=== PATIENT | female | born 1965 | race Caucasian/White ===

== ENCOUNTER 2017-10-25 08:31 | Observation (INO) | payer BC, SELFPAY ==
[2017-10-25] VITALS (11 sets, daily range): BP systolic 96–156; BP diastolic 57–95; PULSE 71–102; RESP 14–20; TEMP 36.4–37.2; O2SAT 93–99; BMI 37.0; BMI 36.8; BMI 36.9
--- NOTE | 2017-10-25 08:49 | CT_ITS ---
STUDY: CT ABDOMEN AND PELVIS WITH CONTRAST REASON FOR EXAM: Female, 52 years old. Right lower quadrant pain. Diarrhea. RADIATION DOSAGE (If Supplied By Facility): CTDIvol = ( 16.85 ) mGy, DLP = ( 1237.96 ) mGycm TECHNIQUE: Transaxial images were obtained from the dome of the diaphragm to the symphysis pubis without oral contrast. 100ML ml of Isovue 300 contrast was administered. Sagittal and coronal images were reconstructed. Individualized dose optimization techniques were used for this CT. COMPARISON: None. FINDINGS: Mild degree of increased markings at the lung bases suggestive of dependent bibasilar atelectasis. The visualized portions of the heart are within normal limits. There is decreased attenuation of the liver consistent with steatosis. There are surgical clips in the gallbladder fossa consistent with a prior cholecystectomy. Normal spleen. Normal pancreas. Normal bilateral adrenal glands. Normal right kidney. There is evidence of crossed ectopia of the left kidney where the left kidney is seen in the right lower quadrant and upper right side of the pelvis. There is a small hiatal hernia. Normal small intestine. Normal colon. There is a tubular, thick-walled appendix (>7mm), consistent with acute appendicitis. Normal abdominal aorta. Normal inferior vena cava. There is borderline retroperitoneal lymphadenopathy with enlarged nodes no greater than 10mm in the short axis diameter. Normal urinary bladder. The uterus is tilted to the right side of the pelvis. Normal abdominal wall. Normal osseous structures. CT/Abdomen/Pelvis WITH Contrast IMPRESSION: Findings in keeping with acute appendicitis with no evidence of periappendiceal abscess. 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 N.B. : The above information has been verbally conveyed by Jacbo Barragan MD to Jonny Zeng on 10/25/2017 11:31:38 (ET). Electronically Signed: Jacob Barragan MD at 11:31 EDT Tel [phone], Service support , N.B. : The above information has been verbally conveyed by Jacob Barragan MD to Jonny Zeng on 10/25/2017 11:31:38 (ET).
[2017-10-25] MEDS: Ondansetron 4 MG/2 ML Vial IV (09:33)
[2017-10-25] MEDS: 0.9% Normal Saline 1,000 ML 1000 ML IV (09:33)
[2017-10-25 09:36] LABS: Absolute Neutrophil Count 11.2 X10^3/uL (2.0-7.7); Basophil# 0.01 X10^3/uL; Basophil% 0.1 % (0-1); Eosinophil# 0.01 X10^3/uL; Eosinophils% 0.1 % (0-5); Hematocrit 43.8 % (37-47); Hemoglobin 14.6 g/dl (12.0-15.0); Lymphocyte % 6.4 % (19-41); Mean Corp Hgb Conc 33.3 g/gl (32-36); Mean Corpuscular Hgb 27.9 pg (27.0-32.0); Mean Corpuscular Volume 83.7 fL (81-99); Mean Platelet Vol. 9.6 fl (6.2-12.0); Monocyte# 0.36 X10^3/uL; Monocyte% 2.9 % (0-10); Neutrophil # 11.21 X10^3/uL (2.7-7.7); Neutrophil % 90.3 % (47-70); Platelet Count 261 K/mm3 (150-450); RBC Distribution Width CV 13.4 % (11.6-14.6); RBC Distribution Width SD 41.3 fl (35.1-43.9); Red Blood Count 5.23 M/mm3 (4.2-5.4); White Blood Count 12.4 K/mm3 (4.4-11.0)
[2017-10-25 09:40] LABS: POSITIVE COUNT NO; POSITIVE DIFFERENTIAL NO; POSITIVE MORPHOLOGY NO
[2017-10-25 09:52] LABS: AST(SGOT) 37 U/L (15-37); Alanine Aminotransfer ALT/SGPT 63 U/L (13-56); Albumin, Serum 4.1 g/dL (3.2-5.0); Alkaline Phosphatase 87 U/L (45-117); Anion Gap 10 (5-15); BUN 7 mg/dL (7-18); BUN/Creat Ratio 9.1 RATIO (10-20); Bilirubin, Direct 0.17 mg/dL (0.00-0.30); Calcium,Total 8.9 mg/dL (8.5-10.1); Chloride 97 mmol/L (98-107); Creatinine, Serum 0.77 mg/dL (0.55-1.02); EST Glomerular Filtration Rate 83 mL/min (>60); Est Glom Filt Rate - Afr Amer 100 mL/min (>60); Estimated Creatinine Clearance 69.09 ml/min; Globulin 4.4 g/dL (2.2-4.2); Glucose 144 mg/dL (74-106); Lipase 114 U/L (73-393); Potassium 3.4 mmol/L (3.5-5.1); Protein, Total 8.5 g/dL (6.4-8.2); Sodium Level 134 mmol/L (136-145)
[2017-10-25 11:42] LABS: Mucous, Urine 0 SEEN /hpf (<or=2+)
[2017-10-25 11:43] LABS: Color, Urine Yellow (Yellow); Glucose, Dipstick Normal (Normal); Ketone-Dipstick Negative (Negative); Leukocyte Esterase-Dipstick Negative /ul (Negative); Nitrite-Dipstick Negative (Negative); Occult Blood-Urine 150 /ul (Negative); Protein-Dipstick Negative (Negative); Urine Bilirubin Dipstick Negative (Negative); Urine Clarity Clear (Clear); Urine Urobilinogen Normal (Normal)
--- NOTE | 2017-10-25 11:43 | ED.VISSUMM ---
- ER Visit Summary Date of Service: 10/25/17 Chief Complaint: Abdominal pain History of Present Illness: The patient is a [address] Wright in [place]. She reports that she has right lower quadrant abdominal pain began at 7:00 last night. It is cramping pain that is 10 out of 10 severity. Is worsened by movement or food. She taken Tylenol without relief. She has had nausea with no vomiting. She has had 3 episodes of diarrhea. No blood in her stools or black tarry stools. No dysuria or frequency. She is on her menstrual period now. She does complain of subjective fever and chills. Physical Examination: Vitals: Stable. Afebrile. General: Well-nourished and well-developed. Head: Normocephalic atraumatic. Neck: Supple, no lymphadenopathy. No JVD. Nontender. Cardiovascular: Regular rate and rhythm. No murmurs. Respiratory: No respiratory distress. Clear to auscultation bilaterally. Abdominal: Soft, mild diffuse tenderness to palpation with moderate pain in the right lower quadrant, nondistended, normal bowel sounds. No guarding, rebound, or peritoneal signs. Back: Nontender. Extremities: Nontender, no edema. Skin: Normal color, no rash. Neurologic: Alert and oriented ?3. Cranial nerves II through XII are intact. Normal strength and sensation. Psych: Normal affect. Test Results: CBC is more for white count 12.4 with 90 segmented neutrophils and 6 lymphocytes. Chem-7 is more for sodium 134, potassium 3.4, glucose 144. LFTs marked for total protein 8.5 and globulin 4.4, ALT is 63. Lipase is normal. Clinical Impression(s) from Imaging Studies Abdomen/Pelvis CT 10/25/17 08:49 IMPRESSION: Findings in keeping with acute appendicitis with no evidence of periappendiceal abscess. 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 Emergency Department Course and Treatment: Patient had an IV placed. She was given morphine and Zofran IV. She is resting comfortably. After return to CT she was given a dose of Zosyn IV. Treatment Plan: The patient was discussed with Dr. Anaya. She will be taken to the operating room and admitted. Disposition: Admitted in stable condition. Impression: 1. Appendicitis. This note was generated with Visibiz dictation software. It may contain incorrect words, spelling, and punctuation that were not noted in review of the chart prior to signing ED Disposition - Plan for ED Patient: Chief Complaint: Abd Pain Referrals: Charis Figueroa [Primary Care Provider] -
--- NOTE | 2017-10-25 11:46 | ED.DCSUM_ITS ---
- ER Visit Summary Date of Service: 10/25/17 Chief Complaint: Abdominal pain History of Present Illness: The patient is a [address] Wright in [place]. She reports that she has right lower quadrant abdominal pain began at 7 :00 last night. It is cramping pain that is 10 out of 10 severity. Is worsened by movement or food. She taken Tylenol without relief. She has had nausea with no vomiting. She has had 3 episodes of diarrhea. No blood in her stools or black tarry stools. No dysuria or frequency. She is on her menstrual period now. She does complain of subjective fever and chills. Physical Examination: Vitals: Stable. Afebrile. General: Well-nourished and well-developed. Head: Normocephalic atraumatic. Neck: Supple, no lymphadenopathy. No JVD. Nontender. Cardiovascular: Regular rate and rhythm. No murmurs. Respiratory: No respiratory distress. Clear to auscultation bilaterally. Abdominal: Soft, mild diffuse tenderness to palpation with moderate pain in the right lower quadrant, nondistended, normal bowel sounds. No guarding, rebound, or peritoneal signs. Back: Nontender. Extremities: Nontender, no edema. Skin: Normal color, no rash. Neurologic: Alert and oriented ?3. Cranial nerves II through XII are intact. Normal strength and sensation. Psych: Normal affect. Test Results: CBC is more for white count 12.4 with 90 segmented neutrophils and 6 lymphocytes. Chem-7 is more for sodium 134, potassium 3.4, glucose 144. LFTs marked for total protein 8.5 and globulin 4.4, ALT is 63. Lipase is normal. Clinical Impression(s) from Imaging Studies Abdomen/Pelvis CT 10/25/17 08:49 IMPRESSION: Findings in keeping with acute appendicitis with no evidence of periappendiceal abscess. 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 Emergency Department Course and Treatment: Patient had an IV placed. She was given morphine and Zofran IV. She is resting comfortably. After return to CT she was given a dose of Zosyn IV. Treatment Plan: The patient was discussed with Dr. Anaya. She will be taken to the operating room and admitted. Disposition: Admitted in stable condition. Impression: 1. Appendicitis. This note was generated with D[employer]Me dictation software. It may contain incorrect words, spelling, and punctuation that were not noted in review of the chart prior to signing ED Disposition - Plan for ED Patient: Chief Complaint: Abd Pain Referrals: Charis Figueroa [Primary Care Provider] -
[2017-10-25 11:50] LABS: Red Blood Cells-Urine 10-25 SEEN /hpf (0-5); Squamous Epithelial Cells - UA 0-5 SEEN /hpf (5-10); White Blood Cells 0-5 SEEN /hpf (0-5)
[2017-10-25 11:51] LABS: Bacteria RARE /hpf (None Seen)
--- NOTE | 2017-10-25 12:41 | NURSING ---
or then [address] franklyn guillory
--- NOTE | 2017-10-25 13:24 | PCM.HP.STD ---
Problem List (1) Acute appendicitis Status: Acute Qualifiers: Acute appendicitis type: unspecified acute appendicitis type Qualified Code(s): K35.80 - Unspecified acute appendicitis History of Present Illness Date of Admission: 10/25/17 Chief Complaint: Right lower quadrant pain The patient is a 52 year old F who reports she began to have right lower quadrant pain around 7 PM last night. She did have diarrhea as well. She has nausea but no vomiting. She has pain in the right lower quadrant that does not radiate. She has no other symptoms at this time. Past Medical History Allergies aspirin Allergy (Verified 10/25/17 08:32) Unknown Surgical History: cholecystectomy Smoking Status: Never smoker Alcohol: None Drugs: None - *Family History Paternal History Items: Diabetes, Heart Disease Review of Systems Constitutional: Denies: Anorexia, Fever HEENT: Denies: Difficulty Hearing, Difficulty Swallowing Cardiovascular: Denies: Chest Pain Respiratory: Denies: Cough, Shortness of Breath Gastrointestinal: Reports: Abdominal Pain, Nausea. Denies: Vomiting Genitourinary: Denies: Dysuria Musculoskeletal: Denies: Joint Tenderness Skin: Denies: Dryness, Jaundice Neurological: Denies: Difficulty swallowing Psychiatric: Denies: Anxiety, Depression Hematologic/ Lymphatic: Denies: Adenopathy, Anemia VTE Information - Inpt Only VTE Present on Admission: No VTE Mechan Device Prophylaxis: SCD's VTE Pharm Prophylaxis ordered?: Yes Patient Problems: Active and Suspected Problems Acute appendicitis (Acute) - Physical Exam General: Alert, Oriented x3, Cooperative, No apparent distress HEENT: Atraumatic, PERRLA, EOMI Oral: Moist Mucosa Neck: Supple, No JVD Lungs: Normal air movement Cardiovascular: Regular rate, Regular Rhythm Abdomen: Soft, Non-Distended, Tender - Tender in the right lower quadrant with no guarding or rebound Extremities: No clubbing, No cyanosis Skin: No rashes Musculoskeletal: No Tenderness to Palpation of Joints or Extremities, No Muscle Wasting Neurological: Cranial nerves II-XII grossly intact, Deep Tendon Reflexes 2+/4 and Symmetrical Psych/Mental Status: Normal Affect, Appropriate Vital Signs Temp Pulse Resp BP Pulse Ox 98.4 F 80 14 140/78 H 99 10/25/17 08:32 10/25/17 12:08 10/25/17 12:08 10/25/17 12:08 10/25/17 12:08 Oxygen Delivery Method Room Air Weight: 208 lb 12.444 oz Body Mass Index (BMI) 37.0 Laboratory Tests Past 24 Hrs 10/25/17 10/25/17 10/25/17 09:26 09:26 11:35 WBC 12.4 H RBC 5.23 Hgb 14.6 Hct 43.8 MCV 83.7 MCH 27.9 MCHC 33.3 RDW 13.4 RDW Differential 41.3 Plt Count 261 MPV 9.6 Immature Gran % (Auto) 0.200 Neut % (Auto) 90.3 H Lymph % (Auto) 6.4 L Meagher % (Auto) 2.9 Eos % (Auto) 0.1 Baso % (Auto) 0.1 Absolute Neuts (auto) 11.2 H Absolute Lymphs (auto) 0.80 L Total Counted Not Reportable Sodium 134 L Potassium 3.4 L Chloride 97 L Carbon Dioxide 27.0 Anion Gap 10 BUN 7 Creatinine 0.77 Estim Creat Clear Calc 69.09 Est GFR (MDRD) Af Amer 100 Est GFR (MDRD) Non-Af 83 BUN/Creatinine Ratio 9.1 L Glucose 144 H Calcium 8.9 Total Bilirubin 0.80 Direct Bilirubin 0.17 AST 37 ALT 63 H Alkaline Phosphatase 87 Total Protein 8.5 H Albumin 4.1 Globulin 4.4 H Lipase 114 Urine Color Yellow Urine Clarity Clear Urine pH 7.0 Ur Specific [place] 1.010 Urine Protein Negative Urine Glucose (UA) Normal Urine Ketones Negative Urine Occult Blood 150 H Urine Nitrite Negative Urine Bilirubin Negative Urine Urobilinogen Normal Ur Leukocyte Esterase Negative Urine RBC 10-25 SEEN Urine WBC 0-5 SEEN Ur Squamous Epith Cells 0-5 SEEN Urine Bacteria RARE Urine Mucus 0 SEEN Clinical Impression(s) from Imaging Studies Abdomen/Pelvis CT 10/25/17 08:49 IMPRESSION: Findings in keeping with acute appendicitis with no evidence of periappendiceal abscess. 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 N.B. : The above information has been verbally conveyed by Jacob Barragan MD to Jonny Zeng on 10/25/2017 11:31:38 (ET). Electronically Signed: Jacob Barragan MD at 11:31 EDT Tel [phone], Service support , N.B. : The above information has been verbally conveyed by Jacob Barragan MD to Jonny Zeng on 10/25/2017 11:31:38 (ET). Assessment/Plan Active and Suspected Problems Acute appendicitis (Acute) 52-year-old female with acute appendicitis 1. Patient has appendicitis on CT and her presentation fits with appendicitis. She will be given a dose of antibiotics in the emergency room and taken this afternoon for laparoscopic appendectomy 2. I discussed surgery with her in detail. I discussed the risks including but not limited to bleeding, infection, injury to other organs such as the bowels or bladder. In her case there is also a risk of injuring the kidney as it is in an abnormal position. The patient understands all the risks and is willing to proceed with surgery. Nitin Anaya MD Pager: [facility] [address], [place] [phone] Office:
--- NOTE | 2017-10-25 13:27 | HP.PCM_ITS ---
Problem List (1) Acute appendicitis Status: Acute Qualifiers: Acute appendicitis type: unspecified acute appendicitis type Qualified Code (s): K35.80 - Unspecified acute appendicitis History of Present Illness Date of Admission: 10/25/17 Chief Complaint: Right lower quadrant pain The patient is a 52 year old F who reports she began to have right lower quadrant pain around 7 PM last night. She did have diarrhea as well. She has nausea but no vomiting. She has pain in the right lower quadrant that does not radiate. She has no other symptoms at this time. Past Medical History Allergies aspirin Allergy (Verified 10/25/17 08:32) Unknown Surgical History: cholecystectomy Smoking Status: Never smoker Alcohol: None Drugs: None - *Family History Paternal History Items: Diabetes, Heart Disease Review of Systems Constitutional: Denies: Anorexia, Fever HEENT: Denies: Difficulty Hearing, Difficulty Swallowing Cardiovascular: Denies: Chest Pain Respiratory: Denies: Cough, Shortness of Breath Gastrointestinal: Reports: Abdominal Pain, Nausea. Denies: Vomiting Genitourinary: Denies: Dysuria Musculoskeletal: Denies: Joint Tenderness Skin: Denies: Dryness, Jaundice Neurological: Denies: Difficulty swallowing Psychiatric: Denies: Anxiety, Depression Hematologic/ Lymphatic: Denies: Adenopathy, Anemia VTE Information - Inpt Only VTE Present on Admission: No VTE Mechan Device Prophylaxis: SCD's VTE Pharm Prophylaxis ordered?: Yes Patient Problems: Active and Suspected Problems Acute appendicitis (Acute) - Physical Exam General: Alert, Oriented x3, Cooperative, No apparent distress HEENT: Atraumatic, PERRLA, EOMI Oral: Moist Mucosa Neck: Supple, No JVD Lungs: Normal air movement Cardiovascular: Regular rate, Regular Rhythm Abdomen: Soft, Non-Distended, Tender - Tender in the right lower quadrant with no guarding or rebound Extremities: No clubbing, No cyanosis Skin: No rashes Musculoskeletal: No Tenderness to Palpation of Joints or Extremities, No Muscle Wasting Neurological: Cranial nerves II-XII grossly intact, Deep Tendon Reflexes 2+/4 and Symmetrical Psych/Mental Status: Normal Affect, Appropriate Vital Signs Temp Pulse Resp BP Pulse Ox 98.4 F 80 14 140/78 H 99 10/25/17 08:32 10/25/17 12:08 10/25/17 12:08 10/25/17 12:08 10/25/17 12:08 Oxygen Delivery Method Room Air Weight: 208 lb 12.444 oz Body Mass Index (BMI) 37.0 Laboratory Tests Past 24 Hrs 10/25/17 10/25/17 10/25/17 09:26 09:26 11:35 WBC 12.4 H RBC 5.23 Hgb 14.6 Hct 43.8 MCV 83.7 MCH 27.9 MCHC 33.3 RDW 13.4 RDW Differential 41.3 Plt Count 261 MPV 9.6 Immature Gran % (Auto) 0.200 Neut % (Auto) 90.3 H Lymph % (Auto) 6.4 L [place] % (Auto) 2.9 Eos % (Auto) 0.1 Baso % (Auto) 0.1 Absolute Neuts (auto) 11.2 H Absolute Lymphs (auto) 0.80 L Total Counted Not Reportable Sodium 134 L Potassium 3.4 L Chloride 97 L Carbon Dioxide 27.0 Anion Gap 10 BUN 7 Creatinine 0.77 Estim Creat Clear Calc 69.09 Est GFR (MDRD) Af Amer 100 Est GFR (MDRD) Non-Af 83 BUN/Creatinine Ratio 9.1 L Glucose 144 H Calcium 8.9 Total Bilirubin 0.80 Direct Bilirubin 0.17 AST 37 ALT 63 H Alkaline Phosphatase 87 Total Protein 8.5 H Albumin 4.1 Globulin 4.4 H Lipase 114 Urine Color Yellow Urine Clarity Clear Urine pH 7.0 Ur Specific [place] 1.010 Urine Protein Negative Urine Glucose (UA) Normal Urine Ketones Negative Urine Occult Blood 150 H Urine Nitrite Negative Urine Bilirubin Negative Urine Urobilinogen Normal Ur Leukocyte Esterase Negative Urine RBC 10-25 SEEN Urine WBC 0-5 SEEN Ur Squamous Epith Cells 0-5 SEEN Urine Bacteria RARE Urine Mucus 0 SEEN Clinical Impression(s) from Imaging Studies Abdomen/Pelvis CT 10/25/17 08:49 IMPRESSION: Findings in keeping with acute appendicitis with no evidence of periappendiceal abscess. 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 N.B. : The above information has been verbally conveyed by Jacob Barragan MD to Jonny Zeng on 10/25/2017 11:31:38 (ET). Electronically Signed: Jacob Barragan MD at 11:31 EDT Tel [phone], Service support , N.B. : The above information has been verbally conveyed by Jacob Barragan MD to Jonny Zeng on 10/25/2017 11:31:38 (ET). Assessment/Plan Active and Suspected Problems Acute appendicitis (Acute) 52-year-old female with acute appendicitis 1. Patient has appendicitis on CT and her presentation fits with appendicitis. She will be given a dose of antibiotics in the emergency room and taken this afternoon for laparoscopic appendectomy 2. I discussed surgery with her in detail. I discussed the risks including but not limited to bleeding, infection, injury to other organs such as the bowels or bladder. In her case there is also a risk of injuring the kidney as it is in an abnormal position. The patient understands all the risks and is willing to proceed with surgery. Nitin Anaya MD Pager: [facility] [address], [place] [phone] Office:
[2017-10-25] MEDS: Bupivacaine 0.25% 30 ML Vial (16:49)
--- NOTE | 2017-10-25 17:10 | OP.PCM_ITS ---
Problem List (1) Acute appendicitis Status: Acute Qualifiers: Acute appendicitis type: unspecified acute appendicitis type Qualified Code (s): K35.80 - Unspecified acute appendicitis Report of Operation Date of Procedure: 10/25/17 Pre-Operative Diagnosis: Acute appendicitis Post-Operative Diagnosis: Acute appendicitis Surgery/Procedure Performed:: Laparoscopic appendectomy Description of Surgical Findings:: Inflamed tense appendix Specimen's removed: Appendix Description of Procedure: The patient was brought into the operating room and general anesthesia was induced. The left arm was tucked and the abdomen was prepped and draped in usual sterile fashion. A small midline incision was made superior to the umbilicus and deepened to the level of the fascia. The fascia was elevated and incised. The peritoneum was also elevated and incised. A finger sweep was performed and a balloon trocar was placed into the abdomen and inflated. The abdomen was insufflated to 15 mmHg and the camera was inserted and the abdomen was inspected for any injuries upon entering the abdomen. There were none. The patient was placed in Trendelenburg position and a 5 mm ports placed in the left lower quadrant and suprapubic areas under direct visualization. Next using atraumatic bowel graspers the appendix was identified. The appendix was grasped and elevated and Enseal was used to take down the mesoappendix. A stapler was used to come across the base of the appendix. The appendix was then placed in Endo Catch bag and removed through the umbilical incision. The staple line was inspected and found to be hemostatic and intact. The 2 5 mm ports are removed under direct visualization. The balloon trocar was deflated and removed and all the air was removed from the abdomen. The umbilical incision fascia was closed with an 0 Vicryl [id number] suture. The incisions were then irrigated with saline and dried. Local anesthetic was injected into the incision sites. The skin incisions were then closed with interrupted 4-0 Monocryl suture and Steri-Strips. Bandages were applied and the patient was awoken and taken to PACU in stable condition. Patient tolerated the procedure well.
[2017-10-25 17:41] LABS: Bedside Glucose 142 mg/dL (70-110)
--- NOTE | 2017-10-25 18:35 | APP_PTH ---
PATIENT: HUEY REVELES LOC: MS2 U#:[id number] AGE/SX: 52/F [place] [facility] [place]: Dr. Nitin Anaya MD : 1965 BED: 1 DIS: 10/26/2017 SPEC #: [id number] RECD: 10/26/17 08:32 STATUS: KWASI JOHNSON #: [id number] SAVAGE: 10/25/17 18:[address]: Nitin Anaya DEPT: SURGICAL PATHOLOGY RECD BY: Breanne Nunez ENTERED: 10/26/17 10:56 SP TYPE: APPENDIX OTHR DR: Dr. Charis Figueroa MD Tissues: Appendix, NOS Procedures: Surgery Specimen Level III HEADER OPERATION: Laparoscopic, appendectomy PRE-OP DIAGNOSIS: Acute appendicitis TISSUE SUBMITTED: Appendix MICROSCOPIC DIAGNOSIS Appendix, appendectomy: Acute necrotizing appendicitis. Acute serositis. AM:guy 3/16/18 MICROSCOPIC DESCRIPTION Slides are reviewed. GROSS DESCRIPTION Received is one container labeled with the patient's name and designated appendix. The specimen consists of a C-shaped appendix measuring 10.5 cm in length and 0.7 cm in average diameter. The attached periappendiceal adipose tissue measures 2.5 cm in width. The serosa is congested. No obvious perforation is identified. The lumen is filled with dirty brown fecal material. No fecalith is identified. Rewinder Operator sections are submitted in one cassette. / SJ:guy 10/26/17 TC:2 CPT: 83803
[2017-10-25] MEDS: Dextrose 5%-Lactated Ringers 1,000 ML 75 ML IV (21:14)
[2017-10-25] MEDS: Piperacil/Tazobactam 3.375 GM/50 ML ML IV (21:14)
[2017-10-25] MEDS: Acetaminophen 325 MG Tablet 650 MG PO (22:45)
[2017-10-26 04:55] VITALS: BP 98/54; PULSE 87; RESP 16; TEMP 36.9; O2SAT 93
[2017-10-26] MEDS: Piperacil/Tazobactam 3.375 GM/50 ML ML IV (04:58)
--- NOTE | 2017-10-26 07:33 | PCM.DC.APPY ---
Discharge Diet: Light diet - advance as tolerated Discharge Activity: May Not Drive - for 3-5 days or while taking narcotic pain meds., May Shower Lifting Restrictions: 20 lbs for 2 weeks Call your doctor if your incision/area has: Continuous Slow Oozing, Sudden Increased Bleeding, Increased Pain/ Swelling, Increased Redness, Foul Smelling Discharge Call your doctor if you observe: Fever of 101 or Higher Suture Line Care: Avoid Pulling/Pushing, Avoid Pinching/Bending Additional Dressing/Incision Instructions:: Keep dressing clean and dry. Change or remove dressing in 1 day. Leave steri strips for 1 week. May protect with a gauze bandaid. Medications to take at Discharge Amoxicillin [Amoxil] 500 mg PO Q8 10/25/17 Lisinopril/Hydrochlorothiazide [Zestoretic 10/12.5 Tablet] 1 tablet PO DAILY 10/25/17 Allergies/Adverse Reactions: Allergies aspirin Allergy (Verified 10/25/17 08:32) Unknown Primary Care Physician: Charis Figueroa [Primary Care Provider] - Please Follow Up With: Nitin Anaya MD When: call for 2 week follow up appt [phone]
[2017-10-26 07:34] VITALS: BP 143/71; PULSE 90; RESP 18; TEMP 37.2; O2SAT 99
--- NOTE | 2017-10-26 07:35 | PCM.DC.SUM ---
Discharge Date and Diagnosis - Problem List Patient Problems: Active and Suspected Problems Acute appendicitis (Acute) Date of Admission: 10/25/17 Date of Discharge: 10/26/17 - Primary Discharge Diagnosis Active and Suspected Problems Acute appendicitis (Acute) Hospital Course and Treatment Imaging Results: Clinical Impression(s) from Imaging Studies Abdomen/Pelvis CT 10/25/17 08:49 IMPRESSION: Findings in keeping with acute appendicitis with no evidence of periappendiceal abscess. 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 N.B. : The above information has been verbally conveyed by Jacob Barragan MD to Jonny Zeng on 10/25/2017 11:31:38 (ET). Electronically Signed: Jacob Barragan MD at 11:31 EDT Tel [phone], Service support , N.B. : The above information has been verbally conveyed by Jacob Barragan MD to Jonny Zeng on 10/25/2017 11:31:38 (ET). Operations: appendectomy Procedures: None Summary of Care Provided: The patient is a 52 year old F who presented to the emergency room with right lower quadrant pain. CT revealed acute appendicitis. She was taken for laparoscopic appendectomy and after surgery she was admitted to the floor postoperatively. She tolerated clear liquid diet and was passing flatus in the morning. She is advanced to regular diet and was tolerating that she was discharged home in stable condition. Discharge Diet: Light diet - advance as tolerated Discharge Activity: May Not Drive - for 3-5 days or while taking narcotic pain meds., May Shower Call your doctor if your incision/area has: Continuous Slow Oozing, Sudden Increased Bleeding, Increased Pain/ Swelling, Increased Redness, Foul Smelling Discharge Call your doctor if you observe: Fever of 101 or Higher Suture Line Care: Avoid Pulling/Pushing, Avoid Pinching/Bending Additional Dressing/Incision Instructions:: Keep dressing clean and dry. Change or remove dressing in 1 day. Leave steri strips for 1 week. May protect with a gauze bandaid. Home Medications: Medications to take at Discharge Amoxicillin [Amoxil] 500 mg PO Q8 10/25/17 Lisinopril/Hydrochlorothiazide [Zestoretic 10/12.5 Tablet] 1 tablet PO DAILY 10/25/17 Acetaminophen [Tylenol Tablet] 650 mg PO Q6H PRN PRN tablet 10/26/17 Primary Care Physician: Charis Figueroa [Primary Care Provider] - Please Follow Up With: Nitin Anaya MD When: call for 2 week follow up appt [phone] Meaningful Use Info Meaningful Use Diagnoses (Choose all that apply): None applicable
[2017-10-26 07:50] VITALS: BP 91/54; PULSE 85; RESP 18; TEMP 37.1; O2SAT 92
[2017-10-26 13:50] VITALS: BP 143/71; PULSE 90; RESP 18; TEMP 37.2; O2SAT 99
== END 2017-10-26 14:02 | disposition home or self-care (01) ==
LOC: ED 12:13 → SDC 12:49 → AC 12:51 → MS2 13:06 → SDC 17:24
PROVIDERS: Admitting Provider Surgery; Emergency Provider Emergency Medicine; Family Provider Family Medicine; PCP Family Medicine; Visit Provider Surgery
PROC: 0DTJ4ZZ Resection of Appendix, Percutaneous Endoscopic Approach (ICD-10-PCS; CPT 44970; principal; 2017-10-25 18:15)
DX: K35.80 Unspecified acute appendicitis (principal); I10 Essential (primary) hypertension; Z79.899 Other long term (current) drug therapy
CPT/HCPCS: 00840; 44970; 74177; 80048; 80076; 81001; 82962; 83690; 85025; 88304; 96361; 96365; 96366; 96375; 96376; 97802; 99218; 99285; J7030; J7050; J7120; Q9967; A4216; G0378; J2405

== ENCOUNTER → 2019-03-25 | Outpatient (CLI) | payer BC, SELFPAY ==
--- NOTE | 2019-03-25 09:00 | BI_ITS ---
MAMMOGRAPHY - BILATERAL DIAGNOSTIC REASON FOR EXAM: Female, 54 years old. Abnormal screening mammogram. PERTINENT HISTORY: Sister with breast cancer. TECHNIQUE: Compression spot views in the MLO and craniocaudad projections of both breasts were obtained. CAD: Full Field Digital Mammography with Computer Added Detection was performed. COMPARISON: Comparison is made with prior examination dated February 04, 2019. FINDINGS: Breast Composition: The breasts are heterogeneously dense, which may obscure small masses. There is a 8mm by 7.2 mm nodular density in the medial inferior retroareolar region of the left a small faint nodular densities also seen in the retroareolar region of the right breast. Breast. Correlation with ultrasound is recommended. No other significant abnormalities are identified. BI/DIAG MAMM W/CAD, BILAT IMPRESSION: Subcentimeter nodular densities in both breasts as described. Correlation with ultrasound is recommended. ASSESSMENT CATEGORY: BIRADS Category 0: Incomplete. Need additional imaging evaluation. A letter regarding these results will be sent to the patient by the facility within 30 days. Approximately 10% of breast cancers are not detected by mammography. A normal mammogram should not delay biopsy of a clinically suspicious abnormality. Electronically Signed: Jacob Barragan, at 12:51 EDT , Service support ,
--- NOTE | 2019-03-25 09:42 | US_ITS ---
STUDY: ULTRASOUND BREAST - RIGHT REASON FOR EXAM: Female, 54 years old. Abnormal screening mammogram. TECHNIQUE: Axial and longitudinal images of the RIGHT breast were performed with a high resolution ultrasound transducer. COMPARISON: Comparison is made with prior mammogram done earlier today. FINDINGS: RIGHT Breast: There is a 4 mm x 3 mm x 3 mm cyst at the 12:00 position of the breast at 1 cm from nipple. It is also evidence of a 9 mm x 9 mm x 4 mm well-defined hypoechoic solid nodule at the 12:00 position of the breast at 3 sinus from the nipple. This most likely represents a small fibroadenoma. Tissue diagnosis is recommended. IMPRESSION: 9 mm x 9 mm x 4 mm well-defined hypoechoic solid nodule at the 12:00 position of the breast at 3 cm from nipple. This most likely represents a fibroadenoma. Tissue diagnosis recommended. ASSESSMENT CATEGORY: BIRADS Category 4: Suspicious - Biopsy Should Be Considered. A letter regarding these results will be sent to the patient by the facility within 30 days. Electronically Signed: Jacob Laurel, at 12:55 EDT , Service support , STUDY: ULTRASOUND BREAST - LEFT REASON FOR EXAM: Female, 54 years old. Abnormal screening mammogram. TECHNIQUE: Axial and longitudinal images of the LEFT breast were performed with a high resolution ultrasound transducer. COMPARISON: Comparison is made with prior mammogram done earlier today. FINDINGS: LEFT Breast: There is a 5 mm x 7 mm x 5 mm cyst at the 9:00 position of the breast at 3 cm from the nipple. US/Breast Limited Unilateral IMPRESSION: 5 mm x 7 mm x 5 mm cyst at the 9:00 position of the breast at 3 sinus from the nipple. ASSESSMENT CATEGORY: BIRADS Category 2: Benign. A letter regarding these results will be sent to the patient by the facility within 30 days. Electronically Signed: Jacob Barragan, at 12:54 EDT , Service support ,
== END | disposition home or self-care (01) ==
PROVIDERS: Family Provider Family Medicine; PCP Family Medicine
DX: R92.8 Other abnormal and inconclusive findings on diagnostic imaging of breast (principal)
CPT/HCPCS: 76642; 77066

== ENCOUNTER → 2019-04-04 | Outpatient (CLI) | payer BC, SELFPAY ==
--- NOTE | 2019-04-04 | IMM_PTH ---
PATIENT: HUEY REVELES LOC: [facility] U#:[id number] AGE/SX: 54/F ROOM: RE04/04/[address]: Dr. Cam Mclaughlin MD : 1965 BED: DIS: 04/04/2019 SPEC #: [id number] RECD: 04/05/19 11:29 STATUS: KWASI REQ #: [id number] SAVAGE: 04/04/19 00:[address]: Cam Mclaughlin DEPT: IMMUNOHISTOCHEMISTRY RECD BY: mAanda Cardenas ENTERED: 04/05/19 11:29 SP TYPE: IMMUNO OTHR DR: Dr. Charis Figueroa MD [facility] Doctor Tissues: Right breast, NOS Procedures: Calponin-1(initial) P40 (add) PHYSICIAN & INSTITUTION [place] [id number] SPECIMEN INFORMATION: Tissue Source: Right breast at 12 o'clock +3 Clinical Info: Abnormal right mammogram Specimen Number: [id number] CPT code: 99470, 51422 METHODOLOGY: Deparaffinized sections of prefer/formalin-fixed tissue or PAP/DQ stained slides are incubated with monoclonal/polyclonal antibodies/oligonucleotide probes. Localization is made via biotin free immunoperoxidase method. Appropriate controls are performed and reacted as expected. Results on target cell population are indicated in the following table: RESULTS: ANTIBODY / CLONE RESULT P40 (BC28) positive Calponin-1 (KZ221D) positive These tests were developed and their performance characteristics determined by [facility]. They may not have been cleared or approved by the U.S. Food and Drug Administration. The FDA has determined that such clearance or approval is not necessary. INTERPRETATION: Right breast at 12 o'clock +3, ultrasound-guided needle core biopsy: Consistent with adenosis. Negative for malignancy. SJ:guy 04/05/19
--- NOTE | 2019-04-04 08:30 | BRBX_PTH ---
PATIENT: HUEY REVELES LOC: [facility] U#:[id number] AGE/SX: 54/F ROOM: RE04/04/[address]: Dr. Cam Mclaughlin MD : 1965 BED: DIS: 04/04/2019 SPEC #: [id number] RECD: 04/04/19 11:09 STATUS: KWASI REYann #: [id number] SAVAGE: 04/04/19 08:[address]: Cam Mclaughlin DEPT: SURGICAL PATHOLOGY RECD BY: Amanda aCrdenas ENTERED: 04/04/19 15:01 SP TYPE: BREAST BX OTHR DR: Dr. Charis Figueroa MD [facility] Doctor Tissues: Right breast, NOS Procedures: Surgery Specimen Level IV HEADER OPERATION: Ultrasound-guided right breast needle core biopsy PRE-OP DIAGNOSIS: Abnormal right mammogram R92.8 TISSUE SUBMITTED: Needle core biopsy, right breast at 12 o'clock +3 ISCHEMIC TIME: <1 minute FIXATION TIME: 11 hours MICROSCOPIC DIAGNOSIS Right breast at 12 o'clock +3, ultrasound-guided needle core biopsy: Fibrocystic changes, adenosis and extensive dense fibrosis. Negative for atypia or malignancy. See comment. THERESA:guy 04/05/19 COMMENT Immunohistochemistry ([id number]) supports the above diagnosis. Correlation with clinical, radiologic findings and appropriate follow up are necessary. MICROSCOPIC DESCRIPTION Slides are reviewed. GROSS DESCRIPTION Received in fixative is one container labeled with the patient's name and designated right breast biopsy. The specimen consists of multiple elongated fragments of cardenas-yellow fibroadipose tissue that in aggregate measure 1.5 x 0.5 x 0.1 cm. The entire specimen is submitted in one cassette. / THERESA:guy 04/04/19 TC:5 CPT: 11893
[2019-04-04 09:26] VITALS: BMI 36.6
== END | disposition home or self-care (01) ==
LOC: LABSPEC 14:54
PROVIDERS: Family Provider Family Medicine; Referring Provider Surgery; Visit Provider Surgery
DX: N60.11 Diffuse cystic mastopathy of right breast (principal); N60.21 Fibroadenosis of right breast; N60.31 Fibrosclerosis of right breast
CPT/HCPCS: 88305; 88341; 88342

== ENCOUNTER 2020-11-06 15:49 | Outpatient (RCR) | payer BC, SELFPAY ==
[2019-04-04 09:26] VITALS: BMI 36.6
== END 2021-01-19 23:59 ==
LOC: IMMUN 15:49
PROVIDERS: PCP Nurse Practitioner Family; Visit Provider Family Medicine
DX: Z23 Encounter for immunization (principal)
CPT/HCPCS: 0001A; 0002A; 91300